=== PATIENT | male | born 1955 | race Caucasian/White ===

== ENCOUNTER 2021-01-12 21:31 | Emergency (ER) | payer OTHER ==
[2021-01-12] MEDS ORDERED: ACETAMINOPHEN 500 MG TABLET (FP) ONE (21:40)
[2021-01-12 21:54] VITALS: BMI 25.0
[2021-01-12 22:29] LABS: HEMOGLOBIN 15.3 GM/dl (11.7-16.9); MCH 32.7 pg (25.7-33.7); MEAN CELL VOLUME 94.2 fl (80-96)
[2021-01-12 22:44] LABS: HEMATOCRIT 44.1 % (35.4-49); MCHC 34.7 g/dl (32.0-35.9); PLATELET COUNT 210 K/MM3 (134-434); RBC 4.68 M/mm3 (4.00-5.60); RDW 12.1 % (11.9-15.9); WHITE BLOOD COUNT 4.1 K/mm3 (4.0-10.8)
[2021-01-12 22:48] LABS: ALBUMIN 3.1 g/dl (3.4-5.0); BILIRUBIN,TOTAL 0.8 mg/dl (0.2-1); CALCIUM 7.8 mg/dl (8.5-10); CREATININE 0.9 mg/dl (0.55-1.3); MAGNESIUM 1.7 mg/dL (1.8-2.4); POTASSIUM 3.7 mmol/L (3.5-5.1); TOT PROT 6.3 g/dl (6.4-8.2)
[2021-01-12] MEDS ORDERED: SODIUM CHLORIDE 500 ML IV STA (22:53)
[2021-01-12 23:18] LABS: PLATELET ESTIMATE ADEQUATE
[2021-01-13 00:10] VITALS: BP 103/63; PULSE 60
[2021-01-13 00:13] VITALS: TEMP 99.3
[2021-01-13] MEDS ORDERED: DEXAMETHASONE SOD PHOSPHATE 20 MG/5 ML VIAL IVPB ONE (00:35)
[2021-01-13] MEDS ORDERED: DEXAMETHASONE SOD PHOSPHATE 10 MG/1 ML VIAL ONE (00:38)
== END 2021-01-13 01:53 | disposition home or self-care (01) ==
LOC: FER 21:31
PROC: 3E0337Z Introduction of Electrolytic and Water Balance Substance into Peripheral Vein, Percutaneous Approach (ICD-10-PCS; principal; 2021-01-12)
PROC: 3E033GC Introduction of Other Therapeutic Substance into Peripheral Vein, Percutaneous Approach (ICD-10-PCS; principal; 2021-01-12)
DX: U07.1 COVID-19 (principal)
CPT/HCPCS: 36415; 71045-TC-FY; 80053; 82550; 82553; 83605; 83615; 83735; 83880; 84484; 85025; 86140; 87040; 87804; 93005; 99285-25; C9803; U0003; U0005

== ENCOUNTER 2022-11-06 09:10 | Emergency (ER) | payer OTHER ==
[2022-11-06 09:22] VITALS: TEMP 98; BMI 30.1
[2022-11-06] MEDS ORDERED: ONDANSETRON 4 MG/2 ML VIAL IVPUSH ONE (09:54)
[2022-11-06] MEDS ORDERED: FAMOTIDINE 20 MG/50 ML IVPB 20 MG/50 ML MG IVPB ONE ×2 (09:54→10:17)
[2022-11-06] MEDS ORDERED: ACETAMINOPHEN 1000 MG/100 ML BAG IVPB ONE (09:54)
[2022-11-06] MEDS ORDERED: MAG HYDROX/AL HYDROX/SIMETH -MYLANTA- ORAL SUSPENSION PO ONE (09:58)
[2022-11-06] MEDS ORDERED: ONDANSETRON 4 MG/2 ML VIAL ONE (10:17)
[2022-11-06] MEDS ORDERED: ACETAMINOPHEN INJECTION 100 ML IVPB ONE (10:17)
[2022-11-06] MEDS ORDERED: MAG HYDROX/AL HYDROX/SIMETH 30 ML UNIT-DOSE CUP ONE (10:17)
[2022-11-06 10:34] LABS: BASO % 0.3 % (0-2.0); EOS % 0.2 % (0-4.5); HEMATOCRIT 40.2 % (35.4-49); HEMOGLOBIN 13.6 GM/dL (11.7-16.9); LYMPH % 5.9 % (8-40); MCH 32.1 pg (25.7-33.7); MCHC 33.8 g/dl (32.0-35.9); MEAN PLT VOLUME 8.4 fl (7.5-11.1); MONO % 3.1 % (3.8-10.2); NEUT % 90.5 % (42.8-82.8); PLATELET COUNT 270 10^3/uL (134-434); RBC 4.23 M/mm3 (4.00-5.60); RDW 13.7 % (11.9-15.9); WHITE BLOOD COUNT 9.7 K/mm3 (4.0-10.0)
[2022-11-06 10:41] LABS: INR 1.03 (0.83-1.09); PROTHROMBIN TIME (PATIENT) 11.9 SEC (9.7-13.0)
[2022-11-06 10:44] LABS: ACTIVATED PTT 36.3 SECONDS (25.2-36.5)
[2022-11-06 10:59] LABS: CALCIUM 8.9 mg/dL (8.5-10.1)
[2022-11-06 11:01] LABS: ALBUMIN 3.8 g/dl (3.4-5.0); BLOOD UREA NITROGEN 17.1 mg/dL (7-18); MAGNESIUM 2.2 mg/dL (1.8-2.4)
[2022-11-06 11:04] LABS: BILIRUBIN,TOTAL 0.4 mg/dL (0.2-1); TOT PROT 7.2 g/dl (6.4-8.2)
[2022-11-06 12:41] VITALS: BP 129/83; PULSE 67; RESP 20
== END 2022-11-06 12:43 | disposition home or self-care (01) ==
LOC: JER 09:10
PROC: 3E0333Z Introduction of Anti-inflammatory into Peripheral Vein, Percutaneous Approach (ICD-10-PCS; principal; 2022-11-06)
PROC: 3E033GC Introduction of Other Therapeutic Substance into Peripheral Vein, Percutaneous Approach (ICD-10-PCS; 2022-11-06)
PROC: 3E033GC Introduction of Other Therapeutic Substance into Peripheral Vein, Percutaneous Approach (ICD-10-PCS; 2022-11-06)
DX: R10.9 Unspecified abdominal pain (principal)
CPT/HCPCS: 0241U-QW; 36415; 71045-TC-FY; 80053; 83690; 83735; 84484; 85025; 85610; 85730; 93005; 93010; 99285-25

== ENCOUNTER 2023-03-13 03:11 | Day surgery (SDC) | payer OTHER ==
[2023-03-13 03:22] VITALS: BMI 25.8
[2023-03-13] MEDS ORDERED: SODIUM CHLORIDE 1,000 ML IV STA (03:42)
[2023-03-13] MEDS ORDERED: morphine CARPU-JECT 4 MG/1 ML DISP.SYRIN IVPUSH ONE (03:42)
[2023-03-13] MEDS ORDERED: ONDANSETRON 4 MG/2 ML VIAL IVPUSH ONE (03:42)
[2023-03-13] MEDS ORDERED: ONDANSETRON 4 MG/2 ML VIAL ONE (03:47)
[2023-03-13] MEDS ORDERED: morphine SULFATE 4 MG/ML VIAL ONE (03:47)
[2023-03-13 04:35] LABS: BASO % 0.7 % (0-2.0); EOS % 0.6 % (0-4.5); HEMATOCRIT 38.1 % (35.4-49); HEMOGLOBIN 13.4 GM/dL (11.7-16.9); LYMPH % 11.9 % (8-40); MCH 32.9 pg (25.7-33.7); MCHC 35.3 g/dl (32.0-35.9); MEAN CELL VOLUME 93.1 fl (80-96); MEAN PLT VOLUME 9.1 fl (7.5-11.1); MONO % 6.1 % (3.8-10.2); NEUT % 80.7 % (42.8-82.8); PLATELET COUNT 274 10^3/uL (134-434); RBC 4.09 M/mm3 (4.00-5.60); RDW 13.3 % (11.9-15.9); WHITE BLOOD COUNT 6.6 K/mm3 (4.0-10.0)
[2023-03-13 04:38] LABS: INR 1.04 (0.83-1.09); PROTHROMBIN TIME (PATIENT) 12.1 SEC (9.7-13.0)
[2023-03-13 04:41] LABS: ACTIVATED PTT 37.2 SECONDS (25.2-36.5)
[2023-03-13 05:14] LABS: POTASSIUM 3.8 mmol/L (3.5-5.1)
[2023-03-13 05:17] LABS: ALBUMIN 3.8 g/dl (3.4-5.0); BLOOD UREA NITROGEN 21.5 mg/dL (7-18); CALCIUM 8.7 mg/dL (8.5-10.1)
[2023-03-13 05:20] LABS: CREATININE 0.9 mg/dL (0.55-1.3)
[2023-03-13 05:22] LABS: BILIRUBIN,TOTAL 0.5 mg/dL (0.2-1); TOT PROT 7.4 g/dl (6.4-8.2)
[2023-03-13 05:35] LABS: PH,URINE 7.5 (5.0-8.0); URINE APPEARANCE CLEAR; URINE BILIRUBIN NEGATIVE (NEGATIVE); URINE COLOR YELLOW; URINE GLUCOSE (UA) NEGATIVE (NEGATIVE); URINE KETONE 1+ (NEGATIVE); URINE LEUK ESTERASE NEGATIVE (NEGATIVE); URINE NITRITE NEGATIVE (NEGATIVE); URINE PROTEIN NEGATIVE (NEGATIVE); URINE UROBILINOGEN 0.2 mg/dL (0.2-1.0)
[2023-03-13] MEDS ORDERED: INSULIN (LEVEMIR) 100 UNITS/ML UNITS SQ ONE (07:27)
[2023-03-13] MEDS ORDERED: INSULIN (NOVOLOG) ASPART 100 UNITS/ML 10ML VIAL ONE (07:27)
[2023-03-13] MEDS ORDERED: HEPARIN NA (PORCINE) 5,000 UNITS/ML 1ML VIAL ONE (07:28)
[2023-03-13] MEDS ORDERED: POLYETHYLENE GLYCOL (HEALTHYLAX) 3350 17 GM PACKET PO ONE (10:15)
[2023-03-13] MEDS ORDERED: POLYETHYLENE GLYCOL (HEALTHYLAX) 3350 17 GM PACKET ONE (10:56)
[2023-03-13] MEDS ORDERED: PIPERACILLIN/TAZOB 4.5 GM 4.5 GM in DEXTROSE 5%-WATER 100 ML IVPB ONE (11:09)
[2023-03-13] MEDS ORDERED: PIPERACILLIN/TAZOB 4.5 GM 4.5 GM/100 ML BAG IVPB ONE (11:23)
[2023-03-13] MEDS ORDERED: ACETAMINOPHEN 1000 MG/100 ML BAG IVPB PRN (14:00)
[2023-03-13] MEDS ORDERED: CEFTRIAXONE 1 GM/50 ML BAG ONE (14:07)
[2023-03-13] MEDS: DEXTROSE 5%-NORMAL SALINE 1,000 ML IV SCH ×2 (14:23→23:45)
[2023-03-13] MEDS: CEFTRIAXONE 1 GM in DEXTROSE 5%-WATER - 50 ML IVPB SCH (14:23)
[2023-03-13] MEDS ORDERED: ONDANSETRON 4 MG/2 ML VIAL IVPUSH PRN (17:29)
[2023-03-14 09:04] LABS: BASO % 0.6 % (0-2.0); EOS % 2.6 % (0-4.5); HEMATOCRIT 35.1 % (35.4-49); HEMOGLOBIN 12.2 GM/dL (11.7-16.9); LYMPH % 19.7 % (8-40); MCH 32.8 pg (25.7-33.7); MCHC 34.8 g/dl (32.0-35.9); MEAN CELL VOLUME 94.2 fl (80-96); MEAN PLT VOLUME 9.1 fl (7.5-11.1); MONO % 9.1 % (3.8-10.2); PLATELET COUNT 221 10^3/uL (134-434); RBC 3.73 M/mm3 (4.00-5.60); RDW 13.3 % (11.9-15.9); WHITE BLOOD COUNT 4.5 K/mm3 (4.0-10.0)
[2023-03-14 09:29] LABS: POTASSIUM 4.1 mmol/L (3.5-5.1)
[2023-03-14 09:31] LABS: CALCIUM 8.5 mg/dL (8.5-10.1)
[2023-03-14 09:32] LABS: BLOOD UREA NITROGEN 9.4 mg/dL (7-18)
[2023-03-14 09:37] LABS: BILIRUBIN,TOTAL 0.7 mg/dL (0.2-1)
[2023-03-14] MEDS: CEFTRIAXONE 1 GM in DEXTROSE 5%-WATER - 50 ML IVPB SCH (09:40)
[2023-03-14] MEDS ORDERED: PANTOPRAZOLE SODIUM 40 MG VIAL IVPUSH SCH (10:00)
[2023-03-14] MEDS ORDERED: BUPIVACAINE HCL/PF 0.25% (2.5MG/ML) 10 ML VIAL ONE (10:59)
[2023-03-14] MEDS ORDERED: SUCCINYLCHOLINE CHLORIDE 200 MG/10 ML SYRINGE ONE (11:31)
[2023-03-14] MEDS ORDERED: ROCURONIUM BROMIDE 50 MG/5 ML SYRINGE ONE (11:31)
[2023-03-14] MEDS ORDERED: PROPOFOL 20 ML ONE (11:31)
[2023-03-14] MEDS ORDERED: MIDAZOLAM HCL 2 MG/2 ML SINGLE DOSE VIAL ONE (11:31)
[2023-03-14] MEDS ORDERED: BUPIVACAINE HCL/PF 0.25% (2.5MG/ML) 10 ML VIAL IJ ONE (12:41)
[2023-03-14] MEDS ORDERED: NEOSTIGMINE METHYLSULFATE 0.5 MG/1 ML - 10 ML MDV ONE (13:20)
[2023-03-14] MEDS ORDERED: ACETAMINOPHEN 1000 MG/100 ML BAG IVPB ONE (14:05)
[2023-03-14] MEDS ORDERED: LACTATED RINGERS SOLUTION 1,000 ML IV SCH (14:15)
[2023-03-14] MEDS ORDERED: ONDANSETRON 4 MG/2 ML VIAL IVPUSH PRN (14:33)
[2023-03-14] MEDS ORDERED: oxyCODONE HCL 5 MG TABLET PO PRN (14:33)
[2023-03-14] MEDS ORDERED: SODIUM CHLORIDE 0.9% 500 ML INFUS.BAG IV ONE (14:33)
[2023-03-14] MEDS ORDERED: ACETAMINOPHEN INJECTION 100 ML IVPB ONE (14:59)
[2023-03-14] MEDS: ACETAMINOPHEN 1000 MG/100 ML BAG IVPB SCH (15:03)
[2023-03-14] MEDS: DEXTROSE 5%-NORMAL SALINE 1,000 ML IV SCH (16:18)
[2023-03-14] MEDS: DOCUSATE SODIUM 100 MG CAPSULE (FP) PO SCH (23:27)
[2023-03-15] MEDS: ACETAMINOPHEN 1000 MG/100 ML BAG IVPB SCH ×2 (02:01→09:13)
[2023-03-15] MEDS: DEXTROSE 5%-NORMAL SALINE 1,000 ML IV SCH ×3 (03:08→16:27)
[2023-03-15] MEDS: DOCUSATE SODIUM 100 MG CAPSULE (FP) PO SCH ×3 (07:03→21:39)
[2023-03-15 08:21] LABS: BASO % 0.2 % (0-2.0); HEMATOCRIT 34.7 % (35.4-49); HEMOGLOBIN 12.3 GM/dL (11.7-16.9); LYMPH % 9.4 % (8-40); MCH 33.2 pg (25.7-33.7); MCHC 35.3 g/dl (32.0-35.9); MEAN PLT VOLUME 9.7 fl (7.5-11.1); MONO % 7.2 % (3.8-10.2); NEUT % 83.2 % (42.8-82.8); PLATELET COUNT 212 10^3/uL (134-434); RBC 3.69 M/mm3 (4.00-5.60); RDW 13.2 % (11.9-15.9); WHITE BLOOD COUNT 7.9 K/mm3 (4.0-10.0)
[2023-03-15] MEDS ORDERED: TAMSULOSIN HCL 0.4 MG CAP PO SCH ×2 (08:30→10:54)
[2023-03-15 08:37] LABS: POTASSIUM 3.9 mmol/L (3.5-5.1)
[2023-03-15 08:40] LABS: BLOOD UREA NITROGEN 13.5 mg/dL (7-18); CALCIUM 8.4 mg/dL (8.5-10.1)
[2023-03-15 08:44] LABS: CREATININE 0.9 mg/dL (0.55-1.3)
[2023-03-15 08:45] LABS: BILIRUBIN,TOTAL 0.5 mg/dL (0.2-1)
[2023-03-15] MEDS: BICALUTAMIDE 50 MG TABLET (FP) PO SCH (09:26)
[2023-03-15] MEDS ORDERED: PANTOPRAZOLE SODIUM 40 MG VIAL IVPUSH SCH (10:00)
[2023-03-15] MEDS: TAMSULOSIN HCL 0.4 MG CAP PO SCH (11:07)
[2023-03-15] MEDS ORDERED: COLLAGENASE CLOSTRIDIUM HIST. 30 GRAMS TUBE TP SCH (12:15)
[2023-03-15] MEDS: POLYETHYLENE GLYCOL (HEALTHYLAX) 3350 17 GM PACKET PO SCH (16:27)
[2023-03-15] MEDS: SENNOSIDES 8.8 MG/5 ML SYRUP PO SCH ×2 (17:28→22:02)
[2023-03-15] MEDS: oxyCODONE HCL 5 MG TABLET PO PRN (18:54)
[2023-03-16] MEDS: oxyCODONE HCL 5 MG TABLET PO PRN (01:12)
[2023-03-16] MEDS: DOCUSATE SODIUM 100 MG CAPSULE (FP) PO SCH (05:02)
[2023-03-16] MEDS: TAMSULOSIN HCL 0.4 MG CAP PO SCH (08:21)
[2023-03-16 09:41] VITALS: BP 146/83; PULSE 51; RESP 18; TEMP 98.3
[2023-03-16] MEDS: BICALUTAMIDE 50 MG TABLET (FP) PO SCH (09:50)
[2023-03-16] MEDS: POLYETHYLENE GLYCOL (HEALTHYLAX) 3350 17 GM PACKET PO SCH (09:50)
== END 2023-03-16 10:43 | disposition home or self-care (01) ==
LOC: JER 03:11 → UNDOADMOB 11:10 → JERBED 11:10 → J7W 14:50 → SUATTDRO 03-14 15:31 → JASUSAT 03-14 15:31 → J7W 03-14 15:31 → JASUSAT 03-16 10:43
PROVIDERS: ATTEND Student in an Organized Health Care Education/Training Program
PROC: 0FT44ZZ Resection of Gallbladder, Percutaneous Endoscopic Approach (ICD-10-PCS; principal; 2023-03-14 09:30)
DX: K80.00 Calculus of gallbladder with acute cholecystitis without obstruction (principal)
CPT/HCPCS: 0241U-QW; 36415; 74177-TC; 76705-TC; 80053; 81003; 83605; 83690; 84484; 85025; 85610; 85730; 88304-TC; 93005; 93010; 94760; 99285-25; Q9967